=== PATIENT | female | born 1955 | race Caucasian/White ===

== ENCOUNTER 2024-08-05 21:59 | Emergency (ER) | payer MEDICARE, OTHER ==
[2024-08-05] MEDS: Take Home: Amoxicillin/Clavulanate K 875-125 MG Tab, 6 Tab Pack PO ONE (23:02)
[2024-08-05] MEDS: Albuterol 6.7 GM Inhaler INH ONE (23:02)
[2024-08-05 23:09] VITALS: BP 135/70; PULSE 90
== END 2024-08-05 23:06 | disposition home or self-care (01) ==
LOC: DL.ED 21:59
DX: J40 Bronchitis, not specified as acute or chronic (principal); J32.9 Chronic sinusitis, unspecified; H66.92 Otitis media, unspecified, left ear; H72.92 Unspecified perforation of tympanic membrane, left ear; E78.00 Pure hypercholesterolemia, unspecified; Z79.899 Other long term (current) drug therapy; Z90.710 Acquired absence of both cervix and uterus; Z88.8 Allergy status to other drugs, medicaments and biological substances
CPT/HCPCS: 99283; A9270